=== PATIENT | male | born 1955 | race Caucasian/White ===

== ENCOUNTER → 2020-04-22 17:40 | Outpatient (CLI) | payer MEDICARE, OTHER, SELFPAY ==
[2020-04-22 17:52] LABS: Hematocrit 48.2 % (41-53); Hemoglobin 16.8 g/dL (13.5-17.5); Mean Corpuscular HGB Conc 34.8 % (30-36); Mean Corpuscular Hemoglobin 32.3 PG (26-34); Mean Corpuscular Volume 92.8 fL (80-100); Platelet Count 156 X10^3/uL (150-400); Red Blood Cell Count 5.19 X10^6/uL (4.5-5.9); Red Cell Distribution Width 12.6 % (11.6-14.8); White Blood Cell Count 9.4 X10^3/uL (4.5-11.0)
[2020-04-22 18:04] LABS: Alanine Aminotransferase 42 IU/L (<50); Albumin 4.7 g/dL (3.5-5.0); Albumin Globulin Ratio 1.5 (1.0-2.8); Alkaline Phosphatase 58 U/L (38-126); Aspartate Aminotransferase 36 IU/L (17-59); Blood Urea Nitrogen 41 mg/dL (9-20); Carbon Dioxide 25 mmol/L (22-32); Chloride 108 mmol/L (98-107); Cholesterol 280 mg/dL (140-199); Estimated Glomerular Filt Rate 42.4 mL/min (>60); Globulin 3.1 g/dL (1.7-4.1); Glucose 97 mg/dL (80-110); HDL Cholesterol 41 mg/dL (40-60); HEMOLYSIS 16 (0-50); LDL Cholesterol Calculated 171 mg/dL (<100); Potassium 4.9 mmol/L (3.4-5.1); Sodium 138 mmol/L (137-145); Total Protein 7.8 g/dL (6.3-8.2); Triglycerides 342 mg/dL (35-150)
[2020-04-22 18:55] LABS: TSH w/ Reflex to FT4 1.28 uIU/mL (0.47-4.68)
== END ==
PROVIDERS: PCP Registered Nurse Diabetes Educator; Referring Provider Registered Nurse Diabetes Educator; Visit Provider Registered Nurse Diabetes Educator
DX: E78.5 Hyperlipidemia, unspecified (principal); I10 Essential (primary) hypertension
CPT/HCPCS: 36415; 80053; 80061; 84443; 85027

== ENCOUNTER → 2020-05-03 15:13 | Outpatient (CLI) | payer MEDICARE, OTHER, SELFPAY ==
[2020-05-03 15:20] LABS: Bacteria Urine None Seen; RBC Urine None Seen (0-5/HPF)
[2020-05-03 16:12] LABS: BUN Creatinine Ratio 25.5 (6-22); Blood Urea Nitrogen 47 mg/dL (9-20); Calcium 9.4 mg/dL (8.4-10.2); Carbon Dioxide 27 mmol/L (22-32); Chloride 102 mmol/L (98-107); Estimated Glomerular Filt Rate 37.1 mL/min (>60); Glucose 88 mg/dL (80-110); HEMOLYSIS < 15 (0-50); Sodium 133 mmol/L (137-145)
[2020-05-03 16:14] LABS: Potassium 5.4 mmol/L (3.4-5.1)
[2020-05-03 16:18] LABS: Appearance Urine UA CLEAR; Bilirubin Urine UA NEGATIVE (NEGATIVE); Color Urine UA YELLOW; Glucose Urine UA NEGATIVE (Negative); Ketones Urine UA NEGATIVE (NEGATIVE); Leukocyte Esterase Urine UA NEGATIVE (NEGATIVE); Nitrite Urine UA NEGATIVE (Negative); Occult Blood Urine UA NEGATIVE (Negative); Protein Urine UA NEGATIVE (Negative); Specific Gravity Urine UA <=1.005 (1.000-1.035); Urobilinogen Urine UA 0.2 E.U./dL (0.2); pH Urine UA 5.5 (4.5-8.0)
[2020-05-03 16:30] LABS: Culture Indicated Urine Cult Not Indicated; Squamous Epithelial Cell Urine 0-1 /HPF (0-5/HPF); WBC Urine 0-1/HPF (0-5/HPF)
[2020-05-03 17:51] LABS: Creatinine Urine Random 28.4 mg/dL
[2020-05-03 17:56] LABS: Microalbumin Urine Random < 0.6 mg/dL (0-1.6)
== END ==
PROVIDERS: PCP Registered Nurse Diabetes Educator; Referring Provider Registered Nurse Diabetes Educator; Visit Provider Registered Nurse Diabetes Educator
DX: I10 Essential (primary) hypertension (principal); R79.89 Other specified abnormal findings of blood chemistry
CPT/HCPCS: 36415; 80048; 81001; 82043; 82570

== ENCOUNTER → 2020-05-13 13:39 | Outpatient (CLI) | payer MEDICARE, OTHER, SELFPAY ==
--- NOTE | 2020-05-13 13:40 | DI.US.S_ITS ---
PROCEDURE: US RENAL COMPLETE INDICATIONS: CHRONIC KIDNEY DISEASE III TECHNIQUE: Real-time scanning was performed of the kidneys and bladder, with image documentation. COMPARISON: None. FINDINGS: Kidneys: Kidneys are normal in size. Right kidney measures 10.4 cm long; left kidney measures 9.6 cm long. Right renal cortical thickness is 1.7 cm; left renal cortical thickness is 1.6 cm. Renal cortical echotexture is normal. No hydronephrosis or nephrolithiasis. No suspicious solid mass lesions. There are scattered cysts, with the largest on the right measuring up to 1.5 cm superiorly. A 3 x 4 mm renal collecting system focus of calcification is seen with shadowing but this could be a nonobstructive calculus or a vascular calcification in that area. On the left there also are scattered cysts the largest of which measures up to 3.6 cm superiorly.. Bladder: Pre-void bladder volume is 316 mL. Post-void residual is 13 mL. Pre-void images demonstrate no intraluminal masses or stones. On pre-void images, bilateral ureteral jets are noted with color Doppler interrogation. (Of note, ureteral jets may not be detectable in up to 25% of cases due to insufficient differences in specific gravity between ureteral and bladder urine). Miscellaneous: No free pelvic fluid. IMPRESSION: No hydronephrosis is found. Scattered bilateral simple renal cortical cysts are incidentally noted, the largest measuring up to 3.6 cm at the superior left renal cortex. There is a suspected small nonobstructive 3 x 4 mm calculus within the middle 3rd of the right renal collecting system. Normal bladder function. Dictated by: Marlon Prajapati M.D. on 05/13/2020 at 15:58 Approved by: Marlon Prajapati M.D. on 05/13/2020 at 16:01
== END ==
PROVIDERS: PCP Registered Nurse Diabetes Educator; Referring Provider Registered Nurse Diabetes Educator; Visit Provider Registered Nurse Diabetes Educator
DX: N18.30 Chronic kidney disease, stage 3 unspecified (principal); N28.1 Cyst of kidney, acquired
CPT/HCPCS: 76770

== ENCOUNTER → 2020-05-27 08:02 | Outpatient (CLI) | payer MEDICARE, OTHER, SELFPAY ==
[2020-05-27 09:59] LABS: BUN Creatinine Ratio 22.8 (6-22); Blood Urea Nitrogen 33 mg/dL (9-20); Calcium 9.2 mg/dL (8.4-10.2); Carbon Dioxide 32 mmol/L (22-32); Chloride 104 mmol/L (98-107); Estimated Glomerular Filt Rate 48.8 mL/min (>60); Glucose 99 mg/dL (80-110); HEMOLYSIS < 15 (0-50); Potassium 4.4 mmol/L (3.4-5.1); Sodium 138 mmol/L (137-145)
== END ==
PROVIDERS: PCP Registered Nurse Diabetes Educator; Referring Provider Registered Nurse Diabetes Educator; Visit Provider Registered Nurse Diabetes Educator
DX: N18.30 Chronic kidney disease, stage 3 unspecified (principal)
CPT/HCPCS: 36415; 80048

== ENCOUNTER → 2021-06-28 09:31 | Outpatient (CLI) | payer MEDICARE, OTHER, SELFPAY ==
[2021-06-28 11:02] LABS: Cholesterol 262 mg/dL (140-199); HDL Cholesterol 39 mg/dL (40-60); LDL Cholesterol Calculated 182 mg/dL (<100); Triglycerides 205 mg/dL (35-150)
[2021-07-02 09:55] LABS: Alanine Aminotransferase 26 IU/L (<50); Albumin 4.2 g/dL (3.5-5.0); Albumin Globulin Ratio 1.7 (1.0-2.8); Alkaline Phosphatase 52 U/L (38-126); Aspartate Aminotransferase 33 IU/L (17-59); BUN Creatinine Ratio 21.8 (6-22); Blood Urea Nitrogen 38 mg/dL (9-20); Calcium 9.8 mg/dL (8.4-10.2); Carbon Dioxide 29 mmol/L (22-32); Chloride 105 mmol/L (98-107); Estimated Glomerular Filt Rate 39.3 mL/min (>60); Globulin 2.5 g/dL (1.7-4.1); Glucose 104 mg/dL (80-110); HEMOLYSIS < 15 (0-50); Potassium 4.6 mmol/L (3.4-5.1); Sodium 138 mmol/L (137-145); Total Protein 6.7 g/dL (6.3-8.2)
== END ==
PROVIDERS: PCP Registered Nurse Diabetes Educator; Referring Provider Registered Nurse Diabetes Educator; Visit Provider Registered Nurse Diabetes Educator
DX: E78.5 Hyperlipidemia, unspecified (principal)
CPT/HCPCS: 36415; 80053; 80061

== ENCOUNTER → 2021-10-01 07:41 | Outpatient (CLI) | payer MEDICARE, OTHER, SELFPAY ==
--- NOTE | 2021-10-01 07:43 | DI.US.S_ITS ---
PROCEDURE: US ABD AORTA ANEURYSM SCREEN INDICATIONS: HX SMOKING TECHNIQUE: Real time scanning was performed of the aorta and iliac arteries, with image documentation. COMPARISON: [facility], CT, ABDOMEN/PELVIS WITH CONTRAST, 12/08/2013, 8:25. FINDINGS: Aorta: The proximal aorta is not seen, secondary to overlying bowel gas. Mid-aorta measures 1.7 cm. Distal aortic diameter is 1.6 cm. Iliac arteries: Right common iliac artery measures 0.8 cm. Left common iliac artery measures 1 cm. IMPRESSION: Negative for aneurysm. Dictated by: Robel Parra M.D. on 10/01/2021 at 10:23 Approved by: Robel Parra M.D. on 10/01/2021 at 10:25
--- NOTE | 2021-10-01 07:43 | DI.ECHO.S_ITS ---
[facility] +---------+ [facility] +---------+ : : [address] : : : : [phone] : : : : Phone: [phone]---------+ Echocardiogram Report + + :Name: OMID FITZGERALD Study Date: 10/01/2021 Height: 65 in : [id number] ReadingLocation: Weight: 160 lb : : Gender: Male BSA: 1.8 m2 : :: 1955 Age: 66 yrs BP: 136/76 mmHg: :Reason For Study: Aortic valve stenosis : : Performed By: Leonarda Galvan : :Referring: AKI VERA : + + Interpretation Summary 1) Normal left ventricular thickness, size, wall motion, and systolic function (EF 60-65%). 2) Normal right ventricular size and function. 3) There is mild to moderate aortic stenosis (valve area 1.5cm2, mean gradient 18mm Hg, severity ratio 0.35). 4) There is mild to moderate aortic regurgitation. 5) The aortic root is mildly dilated at 4.1cm. 6) No prior Echo available for comparison. Procedure: A two-dimensional transthoracic echocardiogram with color flow and Doppler was performed. The study quality was technically adequate. There is no prior echocardiogram noted for this patient. The patient was in normal sinus rhythm during the exam. Left Ventricle: The left ventricle appears normal in size, wall thickness, and systolic function without any focal wall motion abnormalities. The estimated left ventricular end diastolic volume is 93 ml. There is no ventricular septal defect visualized. The ejection fraction is estimated to be 60-65%. Diastolic parameters suggest a relaxation abnormality of the left ventricle, consistent with probable normal filling pressures. Right Ventricle: The right ventricle is normal in size and function. Atria: Both atria are normal in size. There is no Doppler evidence for an interatrial shunt. Mitral Valve: The mitral valve is normal in structure and function. There is no mitral regurgitation noted. Aortic Valve: There is moderate aortic valve sclerosis. The aortic valve is trileaflet. The peak aortic velocity is 2.9 m/sec. The aortic valve mean gradient is 17.6 mmHg. The calculated aortic valve area is 1.5 cm2. There is mild to moderate aortic stenosis. There is mild to moderate aortic regurgitation. Tricuspid Valve: The tricuspid valve leaflets are thin and pliable. There is trace tricuspid regurgitation. The right ventricular systolic pressure is estimated to be at least 25 mmHg based on an estimated right atrial pressure of 3 mm Hg. Pulmonic Valve: The pulmonic valve is not well seen, but is grossly normal. There is no pulmonic valvular regurgitation. Great Vessels: The aortic root is mildly dilated. The ascending aorta is at the upper limits of normal in size. The aortic arch is normal in size. The IVC is of normal diameter and collapses greater than 50% with a sniff. This suggests a low right atrial pressure of 3 mm Hg. Pericardium/ Pleura There is no pericardial effusion. MMode/2D Measurements & Calculations LVIDd: 5.2 cm LVOT diam: 2.3 cm LVIDs: 3.4 cm Ao root diam: 4.1 cm FS: 35.7 % asc Aorta Diam: 3.7 cm EPSS: 0.55 cm Ao Arch Diam (Prox Trans): 3.1 cm IVSd: 0.84 cm LVPWd: 0.74 cm LV oseguera. diameter/BSA (cm/m^2): 2.9 LV sys. diameter/BSA (cm/m^2): 1.9 LA A2 area: 18.5 cm2 RA long axis: 5.1 cm LA A4 area: 15.4 cm2 RA area: 12.6 cm2 LA length (vol): 4.6 cm RA vol: 26.9 ml LA vol: 53.1 ml RA : 15.0 ml/m2 LA vol index: 29.5 ml/m2 IVC diam: 1.2 cm RVD1 (basal): 2.8 cm TAPSE: 2.0 cm Doppler Measurements & Calculations Ao V2 max: 287.3 cm/sec LVOT Max Camacho: 99.9 cm/sec Ao V2 mean: 199.4 cm/sec LV V1 max P.0 mmHg Ao max P.0 mmHg LV V1 VTI: 21.3 cm Ao mean P.6 mmHg MIRYAM(I,D): 1.5 cm2 Ao V2 VTI: 60.9 cm MIRYAM(V,D): 1.5 cm2 sev ratio: 0.35 MIRYAM indexed to BSA (cm^2/m^2): 0.83 AI P1/2t: 664.3 msec AI dec slope: 208.3 cm/sec2 MV E max camacho: 55.9 cm/sec TR max camacho: 236.1 cm/sec MV A max camacho: 68.8 cm/sec TR max P.3 mmHg MV E/A: 0.81 PA V2 max: 73.2 cm/sec Med Peak E' Camacho: 4.6 cm/sec PA V2 mean: 50.3 cm/sec E/E' med: 12.1 PA mean P.1 mmHg Lat Peak E' Camacho: 7.4 cm/sec PA pr(Accel): 25.1 mmHg E/E' lat: 7.6 E/e' average: 9.8 MV dec time: 0.25 sec SV(LVOT): 90.7 ml Reading Physician:01:25 PM
== END ==
PROVIDERS: PCP Registered Nurse Diabetes Educator; Referring Provider Registered Nurse Diabetes Educator; Visit Provider Registered Nurse Diabetes Educator
DX: I35.2 Nonrheumatic aortic (valve) stenosis with insufficiency (principal); I77.810 Thoracic aortic ectasia; Z13.6 Encounter for screening for cardiovascular disorders; F17.200 Nicotine dependence, unspecified, uncomplicated
CPT/HCPCS: 76706; 93306

== ENCOUNTER → 2022-08-08 07:39 | Outpatient (CLI) | payer MEDICARE, OTHER, SELFPAY ==
[2022-08-08 08:54] LABS: Hematocrit 47.5 % (41-53); Hemoglobin 16.4 g/dL (13.5-17.5); Mean Corpuscular HGB Conc 34.4 % (30-36); Mean Corpuscular Hemoglobin 32.2 PG (26-34); Mean Corpuscular Volume 93.6 fL (80-100); Platelet Count 138 X10^3/uL (150-400); Red Blood Cell Count 5.08 X10^6/uL (4.5-5.9); Red Cell Distribution Width 13.2 % (11.6-14.8); White Blood Cell Count 7.3 X10^3/uL (4.5-11.0)
[2022-08-08 09:17] LABS: Alanine Aminotransferase 55 IU/L (<50); Albumin 4.2 g/dL (3.5-5.0); Albumin Globulin Ratio 1.8 (1.0-2.8); Alkaline Phosphatase 70 U/L (38-126); Aspartate Aminotransferase 39 IU/L (17-59); BUN Creatinine Ratio 20.5 (6-22); Blood Urea Nitrogen 33 mg/dL (9-20); Calcium 8.8 mg/dL (8.4-10.2); Carbon Dioxide 30 mmol/L (22-32); Chloride 103 mmol/L (98-107); Cholesterol 185 mg/dL (140-199); Estimated Glomerular Filt Rate 46 mL/min (>60); Globulin 2.4 g/dL (1.7-4.1); Glucose 107 mg/dL (80-110); HDL Cholesterol 50 mg/dL (40-60); HEMOLYSIS < 15 (0-50); LDL Cholesterol Calculated 110 mg/dL (<100); Potassium 4.4 mmol/L (3.4-5.1); Sodium 136 mmol/L (137-145); Total Protein 6.6 g/dL (6.3-8.2); Triglycerides 124 mg/dL (35-150)
[2022-08-08 09:46] LABS: TSH w/ Reflex to FT4 1.38 uIU/mL (0.47-4.68)
== END ==
PROVIDERS: PCP Registered Nurse Diabetes Educator; Referring Provider Registered Nurse Diabetes Educator; Visit Provider Registered Nurse Diabetes Educator
DX: E78.5 Hyperlipidemia, unspecified (principal); I10 Essential (primary) hypertension; N18.32 Chronic kidney disease, stage 3b
CPT/HCPCS: 36415; 80053; 80061; 84443; 85027

== ENCOUNTER → 2022-10-21 15:07 | Outpatient (CLI) | payer MEDICARE, OTHER, SELFPAY ==
--- NOTE | 2022-10-21 15:10 | DI.CT.S_ITS ---
PROCEDURE: CT CHEST WO CON INDICATIONS: Current smoker TECHNIQUE: Noncontrast 2.0-2.5 mm thick sections acquired from the pulmonary apices to the posterior costophrenic angles. 7 mm thick axial MIP, and 5 mm coronal and sagittal reformats were then acquired. A low radiation dose technique was utilized. COMPARISON: None. FINDINGS: Image quality: Diagnostic, given the low radiation dose technique. Lungs and pleura: Moderate emphysematous change. No mass or significant pulmonary nodules. No acute airspace opacity. The airways are clear. No pleural effusion or pneumothorax. Mediastinum: Heart size is normal. Mild coronary artery calcifications. No pericardial effusion. No mediastinal adenopathy by size criteria. Thoracic aorta and central pulmonary arteries are normal in size. Esophagus is normal in caliber. No hiatal hernia. Bones and chest wall: No suspicious bony lesions. T4 compression fracture, moderate. No axillary or supraclavicular adenopathy by size criteria. Thyroid gland right thyroid nodule measuring 1.6 cm with calcifications. Abdomen: Visualized upper abdomen solid organs and bowel loops appear normal in the absence of contrast. Low-density cyst at the superior pole of the left kidney. Small benign left adrenal adenoma. IMPRESSION: 1. No significant pulmonary nodules. LUNG-RADS 1; recommend follow-up lung cancer screening chest CT in 12 months. 2. Moderate emphysematous change. 3. Right thyroid nodule measuring 1.6 cm. 4. T4 compression fracture. Dictated by: You Jasmine M.D. on 10/21/2022 at 17:32 Approved by: You Jasmine M.D. on 10/21/2022 at 17:36
== END ==
PROVIDERS: PCP Registered Nurse Diabetes Educator; Referring Provider Registered Nurse Diabetes Educator; Visit Provider Registered Nurse Diabetes Educator
DX: E04.1 Nontoxic single thyroid nodule (principal); M48.54XA Collapsed vertebra, not elsewhere classified, thoracic region, initial encounter for fracture; F17.200 Nicotine dependence, unspecified, uncomplicated
CPT/HCPCS: 71250

== ENCOUNTER → 2022-11-11 15:06 | Outpatient (CLI) | payer MEDICARE, OTHER, SELFPAY ==
--- NOTE | 2022-11-11 15:07 | DI.US.S_ITS ---
PROCEDURE: US THYROID INDICATIONS: NODULE ON CT TECHNIQUE: Real-time scanning was performed of the thyroid gland, with image documentation. COMPARISON: [facility], CT, CT CHEST WO [facility], 10/21/2022, 15:26. FINDINGS: Right: 6.1 x 2.8 x 2.3 cm Left: 5.3 x 2.5 x 1.8 cm Isthmus: 3.5 mm Left thyroid nodule measures 1.7 x 0.9 x 0.9 cm. Mixed cystic/solid. Hypoechoic echotexture. Margins are ill-defined. TR 3. Follow-up recommended. Right superior nodule measures 1.6 x 1.4 x 1.7 cm. It is solid and hypoechoic. TR 4. Sampling is recommended. Right inferior nodule measures 1.4 x 1.5 x 1.2 cm. Rim calcifications. It is solid and hypoechoic. TR 4. Sampling is recommended. Isthmus nodule measures 1.6 x 0.8 x 1.3 cm. It is cystic solid with smooth borders. Hypoechoic echotexture. TR 3. Follow-up is recommended. IMPRESSION: Thyroid nodules as above. ACR TI-RADS definitions and recommendations: TI-RADS 1 (benign): 0 points. FNA not needed. TI-RADS 2 (not suspicious): 2 points. FNA not needed. TI-RADS 3 (mildly suspicious): 3 points. * FNA if 2.5 cm or larger, follow up if 1.5 cm or larger (at 1, 3, and 5 years). TI-RADS 4 (moderately suspicious): 4-6 points. * FNA if 1.5 cm or larger, follow up if 1 cm or larger (at 1, 2, 3, and 5 years). TI-RADS 5 (highly suspicious): 7 points or more. * FNA if 1 cm or larger, follow up if 0.5 cm or larger (every year for 5 years). Dictated by: Orestes Arzate M.D. on 11/11/2022 at 16:48 Approved by: Orestes Arzate M.D. on 11/11/2022 at 16:53
== END ==
PROVIDERS: PCP Registered Nurse Diabetes Educator; Referring Provider Registered Nurse Diabetes Educator; Visit Provider Registered Nurse Diabetes Educator
DX: E04.2 Nontoxic multinodular goiter (principal)
CPT/HCPCS: 76536

== ENCOUNTER → 2022-11-23 10:17 | Outpatient (CLI) | payer MEDICARE, OTHER, SELFPAY ==
[2022-11-23 11:35] LABS: Add Manual Diff / Slide Review NO; Basophils Absolute Auto 0 /uL (0-100); Basophils Percent Auto 0.6 % (0-2); Eosinophils Absolute Auto 100 /uL (0-450); Eosinophils Percent Auto 1.1 % (2-4); Hemoglobin 14.6 g/dL (13.5-17.5); Lymphocytes Absolute Auto 1700 /uL (1100-4500); Lymphocytes Percent Auto 25.6 % (25-40); Mean Corpuscular HGB Conc 34.9 % (30-36); Mean Corpuscular Hemoglobin 32.9 PG (26-34); Mean Corpuscular Volume 94.5 fL (80-100); Monocytes Absolute Auto 600 /uL (0-900); Monocytes Percent Auto 8.9 % (3-14); Neutrophils Absolute Auto 4400 /uL (1500-7000); Neutrophils Percent Auto 63.8 % (50-75); Platelet Count 132 X10^3/uL (150-400); Red Blood Cell Count 4.45 X10^6/uL (4.5-5.9); Red Cell Distribution Width 13.6 % (11.6-14.8); White Blood Cell Count 6.8 X10^3/uL (4.5-11.0)
[2022-11-23 12:19] LABS: Alanine Aminotransferase 68 IU/L (<50); Albumin 4.1 g/dL (3.5-5.0); Alkaline Phosphatase 63 U/L (38-126); Aspartate Aminotransferase 46 IU/L (17-59); Bilirubin Unconjugated 0.8 mg/dL (0.0-1.1); Cholesterol 156 mg/dL (140-199); Globulin 2.1 g/dL (1.7-4.1); HDL Cholesterol 62 mg/dL (40-60); HEMOLYSIS < 15 (0-50); LDL Cholesterol Calculated 80 mg/dL (<100); Total Protein 6.2 g/dL (6.3-8.2); Triglycerides 70 mg/dL (35-150)
[2022-11-23 12:29] LABS: Creatinine Urine Random 90.4 mg/dL
[2022-11-23 12:36] LABS: Microalbumin Urine Random 5.7 mg/dL (0-1.6)
== END ==
PROVIDERS: PCP Registered Nurse Diabetes Educator; Referring Provider Registered Nurse Diabetes Educator; Visit Provider Registered Nurse Diabetes Educator
DX: D69.6 Thrombocytopenia, unspecified (principal); E78.5 Hyperlipidemia, unspecified; R74.8 Abnormal levels of other serum enzymes; N18.30 Chronic kidney disease, stage 3 unspecified
CPT/HCPCS: 36415; 80061; 80076; 82043; 82570; 85025

== ENCOUNTER → 2022-12-02 12:23 | Outpatient (CLI) | payer MEDICARE, OTHER, SELFPAY ==
--- NOTE | 2022-12-02 | DI.ECHO.S_ITS ---
[facility] +---------+ [facility] +---------+ : : [address] : : : : [phone] : : : : Phone: [phone]+ Echocardiogram Report + + :Name: OMID FITZGERALD Study Date: 12/02/2022 Height: 66 in : :[facility] ReadingLocation: Weight: 147 lb : : Gender: Male BSA: 1.8 m2 : :: 1955 Age: 67 yrs BP: 136/67 mmHg: :Reason For Study: AORTIC STENOSIS : :Ordering Physician: MADHAVI, : :ANNA MARIE Performed By: Nayely Castelan : :Referring: ANNA MARIE NAVA : + + Interpretation Summary 1) Normal left ventricular thickness, size, wall motion, and systolic function (EF 55-60%). 2) Normal right ventricular size and function. 3) There is mild to moderate aortic stenosis (valve area 1.4cm2, mean gradient 19mm Hg, severity ratio 0.35). 4) There is mild to moderate aortic regurgitation. 5) Compared to the Echo done 03/2022, no significant change. Procedure: A two-dimensional transthoracic echocardiogram with color flow and Doppler was performed. The study quality was technically adequate. Comparison is made with the echocardiogram of 10/01/2021. The patient was in sinus rhythm with heart rates between 59-62 bpm during the exam. Left Ventricle: The left ventricle is normal in size and wall thickness. The ejection fraction is estimated to be 55-60%. Left ventricular systolic function appears normal without focal wall motion abnormalities. Diastolic parameters suggest a relaxation abnormality of the left ventricle, consistent with probable normal filling pressures. Right Ventricle: The right ventricle is normal in size and function. Atria: The left atrial size is normal. Right atrial size is normal. There is no Doppler evidence for an interatrial shunt. Mitral Valve: The mitral valve is normal in structure and function. There is mild mitral regurgitation. Aortic Valve: The aortic valve is moderately calcified. There is moderate aortic valve sclerosis. The aortic valve is trileaflet. There is mild to moderate aortic stenosis. The peak aortic velocity is 2.9 m/sec. The aortic valve mean gradient is 19 mmHg. The calculated aortic valve area is 1.3 cm2. There is mild to moderate aortic regurgitation. Tricuspid Valve: The tricuspid valve is normal in structure and function. There is mild tricuspid regurgitation. The right ventricular systolic pressure is estimated to be at least 23 mmHg based on an estimated right atrial pressure of 3 mm Hg. Pulmonic Valve: The pulmonic valve is not well seen, but is grossly normal. There is a trace or physiologic amount of pulmonic regurgitation. Great Vessels: The aortic root is normal size. The ascending aorta is at the upper limits of normal in size. The IVC is of normal diameter and collapses greater than 50% with a sniff. This suggests a low right atrial pressure of 3 mm Hg. Pericardium/ Pleura There is no pericardial effusion. There is no pleural effusion. MMode/2D Measurements & Calculations LVIDd: 4.7 cm LVOT diam: 2.3 cm LVIDs: 3.1 cm Ao root diam: 3.6 cm FS: 33.3 % asc Aorta Diam: 3.7 cm EPSS: 1.0 cm Ao Arch Diam (Prox Trans): 2.2 cm IVSd: 1.0 cm LVPWd: 0.93 cm LV oseguera. diameter/BSA (cm/m^2): 2.7 LV sys. diameter/BSA (cm/m^2): 1.8 LA A2 area: 17.2 cm2 RA long axis: 5.0 cm LA A4 area: 14.2 cm2 RA area: 15.3 cm2 LA length (vol): 4.8 cm RA vol: 39.6 ml LA vol: 43.7 ml RA : 22.6 ml/m2 LA vol index: 24.9 ml/m2 IVC diam: 1.8 cm RVD1 (basal): 3.3 cm RVD2 (mid): 2.6 cm TAPSE: 2.6 cm Doppler Measurements & Calculations Ao V2 max: 287.5 cm/sec LVOT Max Camacho: 93.2 cm/sec Ao V2 mean: 205.6 cm/sec LV V1 max P.5 mmHg Ao max P.1 mmHg LV V1 VTI: 23.1 cm Ao mean P.4 mmHg MIRYAM(I,D): 1.4 cm2 Ao V2 VTI: 65.1 cm MIRYAM(V,D): 1.3 cm2 sev ratio: 0.35 MIRYAM indexed to BSA (cm^2/m^2): 0.82 AI P1/2t: 536.5 msec AI dec slope: 226.8 cm/sec2 MV E max camacho: 71.4 cm/sec TR max camacho: 221.0 cm/sec MV A max camacho: 66.1 cm/sec TR max P.5 mmHg MV E/A: 1.1 PA V2 max: 88.2 cm/sec Med Peak E' Camacho: 7.9 cm/sec PA V2 mean: 63.9 cm/sec E/E' med: 9.0 PA mean P.8 mmHg Lat Peak E' Camacho: 11.7 cm/sec PA pr(Accel): 24.2 mmHg E/E' lat: 6.1 E/e' average: 7.6 MV dec time: 0.26 sec SV(LVOT): 93.5 ml Reading Physician:02:08 PM
== END ==
PROVIDERS: PCP Registered Nurse Diabetes Educator; Referring Provider Internal Medicine Cardiovascular Disease; Visit Provider Internal Medicine Cardiovascular Disease
DX: I08.3 Combined rheumatic disorders of mitral, aortic and tricuspid valves (principal); I77.89 Other specified disorders of arteries and arterioles
CPT/HCPCS: 93306

== ENCOUNTER → 2022-12-09 07:41 | Outpatient (CLI) | payer MEDICARE, OTHER, SELFPAY ==
--- NOTE | 2022-12-09 | PATH_ITS ---
Note [facility] Accession Number: [id number] TESTS RESULT FLAG UNITS REF RANGE LAB Clinician Provided Cytology Information No. of containers..01 Other (Miscellaneous) No. of containers..02 Previously Prepared Cytology Slide Source: RIGHT INFERIOR THYROID NODULE #3 (B) DIAGNOSIS: RIGHT INFERIOR THYROID NODULE #3 (B) INCONCLUSIVE. BETHESDA CATEGORY III. ATYPIA OF UNDETERMINED SIGNIFICANCE. MOLECULAR STUDIES REQUESTED; RESULTS WILL BE REPORTED SEPARATELY. Pathologist ICD10: R89.6 Signed out by: Annie Hsu MD, Pathologist NPI- [id number] Performed by: Christine Lee, Analytical Consultant ([facility]) Gross description: 30 CC, RED, HAZY RECIEVED: 1 NEEDLE IN CYTOLYT WITH 6 ALCOHOL FIXED AND 6 QUICK STAINED SLIDES ALSO 1 RNA VIAL WAS RECEIVED.VO /VDU 12/10/2022 06 Local FLAG LEGEND: L-Low Normal,H-High Normal,LL-Alert Low,HH-Alert High <-Panic Low,>-Panic High,A-Abnormal,AA-Critical Abnormal Performed at: 01 =[facility] [address], [place] [address] Markus Patel MD, Specimen Comment: [id number] Performed at: 01 [facility] [address], [place], [place] [id number] MD Markus Patel MD Phone: [phone]
--- NOTE | 2022-12-09 | PATH_ITS ---
Note [facility] Accession Number: [id number] TESTS RESULT FLAG UNITS REF RANGE LAB Clinician Provided Cytology Information No. of containers..01 Other (Miscellaneous) No. of containers..02 Previously Prepared Cytology Slide Source: RIGHT SUPERIOR THYROID NODULE #2 (A) DIAGNOSIS: RIGHT SUPERIOR THYROID NODULE #2 (A) INCONCLUSIVE. BETHESDA CATEGORY III. ATYPIA OF UNDETERMINED SIGNIFICANCE. MOLECULAR STUDIES PENDING; RESULTS WILL BE REPORTED SEPARATELY. Pathologist ICD10: R89.6 Signed out by: Annie Hsu MD, Pathologist NPI- [id number] Performed by: Redd Osei, Real Estate Coordinator ([facility]) Gross description: 30 CC, RED, HAZY RECIEVED: IN CYTOLYT WITH 6 ALCOHOL FIXED AND 6 QUICK STAINED SLIDES ALSO 1 RNA VIAL WAS RECEIVED.VO /VDU 12/10/2022 [facility] Local FLAG LEGEND: L-Low Normal,H-High Normal,LL-Alert Low,HH-Alert High <-Panic Low,>-Panic High,A-Abnormal,AA-Critical Abnormal Performed at: 01 =[facility] [address], [place] [address] Markus Patel MD, Performed at: 01 [facility] [address], [place], [place] [id number] MD Markus Patel MD Phone: [phone]
--- NOTE | 2022-12-09 07:42 | DI.US.S_ITS ---
PROCEDURE: US FINE NEEDLE ASPIRATION INDICATIONS: RIGHT SUPERIOR #2 AND RIGHT INFERIOR #3 NODULES FNA TECHNIQUE: The indications, alternatives, benefits, risks, and complications of the procedure were explained to the patient. Written informed consent was obtained and placed in the chart. The area of interest was examined sonographically and a site was chosen for ultrasound guided percutaneous sampling. The skin was prepared and draped in the usual fashion, and anesthetized with 1% lidocaine infiltrated from the skin down to the lesion. Multiple passes were then performed, with contents emptied into an appropriate pathology specimen container. A bandage was applied to the area of access at completion of the study. COMPARISON: [facility], , THYROID, 11/11/2022, 15:36. FINDINGS: Location(s) of lesion(s) sampled: 2 nodules were sampled, right inferior and right superior thyroid lobes. Edmond: 25 and 22 gauge hypodermic needles. Number of passes: For each nodule, 5 passes with a 25 gauge needle and a single pass with a 22 gauge needle with suction. Medications: 1% lidocaine for local anaesthesia. Complications: None. IMPRESSION: Successful ultrasound-guided thyroid nodule fine needle aspiration, with cytology results pending. Dictated by: Cory Ram M.D. on 12/09/2022 at 9:31 Approved by: Cory Ram M.D. on 12/09/2022 at 9:34
--- NOTE | 2022-12-09 07:42 | DI.US.S_ITS ---
PROCEDURE: US ABDOMEN LIMITED INDICATIONS: liver enzyme elevation TECHNIQUE: Real-time focused scanning was performed of the abdomen, with image documentation. COMPARISON: [facility], CT, ABDOMEN/PELVIS WITH CONTRAST, 12/08/2013, 8:25. FINDINGS: The liver is normal in size and demonstrates no focal lesions. No findings of gallstones or sludge are seen. The gallbladder wall is not thickened, measuring 3 mm or less. No specific pericholecystic fluid is seen. The sonographic Servin sign is negative. There is no biliary dilatation, the common bile duct measures 6 mm. No significant pancreatic abnormality is seen on these images. Two simple appearing right renal cysts are seen, with the largest seen superiorly measuring up to 1.6 cm. IMPRESSION: Normal liver by ultrasound. Dictated by: Robel Parra M.D. on 12/09/2022 at 17:34 Approved by: Robel Parra M.D. on 12/09/2022 at 17:35
== END ==
PROVIDERS: PCP Registered Nurse Diabetes Educator; Referring Provider Registered Nurse Diabetes Educator; Visit Provider Registered Nurse Diabetes Educator
DX: E04.2 Nontoxic multinodular goiter (principal); R74.8 Abnormal levels of other serum enzymes; D69.6 Thrombocytopenia, unspecified
CPT/HCPCS: 10005; 10006; 76705

== ENCOUNTER → 2023-01-09 07:31 | Outpatient (CLI) | payer MEDICARE, OTHER, SELFPAY ==
[2023-01-09 10:35] LABS: HEMOLYSIS < 15 (0-50); Iron 71 ug/dL (49-181)
[2023-01-09 10:51] LABS: Percent Iron Saturation 21 % (20-50); Total Iron Binding Capacity 344 ug/dL (261-462); Transferrin 249 mg/dL (206-381)
[2023-01-09 11:09] LABS: Ferritin 108 ng/mL (18-464)
[2023-01-11 09:16] LABS: Hep C Virus Ab w/Reflex Quant NEGATIVE s/c (NEGATIVE); Hepatitis B Surface Antigen NEGATIVE s/c (NEGATIVE)
== END ==
PROVIDERS: PCP Registered Nurse Diabetes Educator; Referring Provider Registered Nurse Diabetes Educator; Visit Provider Registered Nurse Diabetes Educator
DX: D69.6 Thrombocytopenia, unspecified (principal); R74.8 Abnormal levels of other serum enzymes
CPT/HCPCS: 36415; 82728; 83540; 83550; 86803; 87340

== ENCOUNTER → 2023-07-23 06:32 | Outpatient (CLI) | payer MEDICARE, OTHER, SELFPAY ==
[2023-07-23 08:16] LABS: Hemoglobin 14.9 g/dL (13.5-17.5); Mean Corpuscular HGB Conc 34.7 % (30-36); Mean Corpuscular Hemoglobin 32.2 PG (26-34); Mean Corpuscular Volume 92.8 fL (80-100); Platelet Count 159 X10^3/uL (150-400); Red Blood Cell Count 4.64 X10^6/uL (4.5-5.9); Red Cell Distribution Width 13.3 % (11.6-14.8); White Blood Cell Count 6.2 X10^3/uL (4.5-11.0)
[2023-07-23 09:35] LABS: Alanine Aminotransferase 85 IU/L (<50); Albumin 4.1 g/dL (3.5-5.0); Albumin Globulin Ratio 1.8 (1.0-2.8); Alkaline Phosphatase 68 U/L (38-126); Aspartate Aminotransferase 63 IU/L (17-59); Bilirubin Total 1.2 mg/dL (0.2-1.3); Bilirubin Unconjugated 0.9 mg/dL (0.0-1.1); Cholesterol 163 mg/dL (140-199); Globulin 2.3 g/dL (1.7-4.1); HDL Cholesterol 53 mg/dL (40-60); HEMOLYSIS < 15 (0-50); LDL Cholesterol Calculated 87 mg/dL (<100); Total Protein 6.4 g/dL (6.3-8.2); Triglycerides 114 mg/dL (35-150)
[2023-07-23 10:13] LABS: Creatinine Urine Random 89.3 mg/dL
[2023-07-23 10:17] LABS: Microalbumi Creatinin Ratio Ur 60.4 ug/mg CR (<30); Microalbumin Urine Random 5.4 mg/dL (0-1.6)
[2023-07-23 16:50] LABS: Hemoglobin A1C% w Est Avg Glu 5.3 % (4.0-6.0)
[2023-07-23 16:54] LABS: BUN Creatinine Ratio 22.9 (6-22); Blood Urea Nitrogen 36 mg/dL (9-20); Calcium 9.5 mg/dL (8.4-10.2); Carbon Dioxide 27 mmol/L (22-32); Chloride 107 mmol/L (98-107); Estimated Glomerular Filt Rate 47 mL/min (>60); Glucose 105 mg/dL (80-110); HEMOLYSIS < 15 (0-50); Potassium 4.4 mmol/L (3.4-5.1); Sodium 140 mmol/L (137-145)
== END ==
LOC: LAB 06:33
PROVIDERS: PCP Registered Nurse Diabetes Educator; Referring Provider Registered Nurse Diabetes Educator; Visit Provider Registered Nurse Diabetes Educator
DX: E78.5 Hyperlipidemia, unspecified (principal); R74.8 Abnormal levels of other serum enzymes; D69.6 Thrombocytopenia, unspecified; R80.9 Proteinuria, unspecified; N18.32 Chronic kidney disease, stage 3b; R73.01 Impaired fasting glucose; I12.9 Hypertensive chronic kidney disease with stage 1 through stage 4 chronic kidney disease, or unspecified chronic kidney disease
CPT/HCPCS: 36415; 80048; 80061; 80076; 82043; 82570; 83036; 85027

== ENCOUNTER → 2023-10-12 06:39 | Outpatient (CLI) | payer MEDICARE, OTHER, SELFPAY ==
--- NOTE | 2023-10-12 06:41 | DI.CT.S_ITS ---
PROCEDURE: CT LUNG LOW DOSE SCREENING INDICATIONS: high risk lung cancer screen TECHNIQUE: Noncontrast 2.0-2.5 mm thick sections acquired from the pulmonary apices to the posterior costophrenic angles. 7 mm thick axial MIP, and 5 mm coronal and sagittal reformats were then acquired. For radiation dose reduction, the following was used: automated exposure control, adjustment of mA and/or kV according to patient size. COMPARISON: CT 10/21/2022. FINDINGS: Image quality: Diagnostic. Lower Neck: No enlarged lymph nodes. Thyroid: Partially calcified right thyroid nodule, previously characterized on ultrasound dated 10/12/2023. Axillae: No enlarged lymph nodes. Chest Wall: Mild gynecomastia. Bones: Remote compression deformity of the T4 vertebral body. No endplate retropulsion. Lungs and Pleura: No pneumothorax or pleural effusions. Moderate centrilobular emphysema. Heart: Heart size is mildly enlarged. No pericardial effusion. Two vessel coronary artery calcification. Thoracic Vessels: The aorta and pulmonary arteries demonstrate normal size. Mediastinum and Khushi: No enlarged lymph nodes. Esophagus: No wall thickening. No hiatal hernia. Upper Abdomen: Fluid attenuating hepatic cyst. IMPRESSION: No suspicious pulmonary nodules. LUNG-RADS 1; continued annual screening, if eligible. Clinically Significant Non-pulmonary Findings: None. Dictated by: Wilmar Ram M.D. on 10/12/2023 at 9:45 Approved by: Wlimar Ram M.D. on 10/12/2023 at 10:01
--- NOTE | 2023-10-12 06:41 | DI.US.S_ITS ---
PROCEDURE: US THYROID INDICATIONS: Nodules TECHNIQUE: Real-time scanning was performed of the thyroid gland, with image documentation. COMPARISON: [facility], US, US THYROID, 11/11/2022, 15:36. FINDINGS: Thyroid: Right lobe measures 5.6 x 2.3 x 2.6 cm. Left lobe measures 5.7 x 2.4 x 1.9 cm. Isthmus is 4 cm thick. Echotexture is heterogeneous. Nodule number: 1 Location: Left Size: 1.9 x 1.8 x 1.2 cm compared to 1.7 x 0.9 x 0.9 cm. Composition: Solid Echogenicity: Hypoechoic Shape: wider than tall. Margins: Irregular Echogenic foci: Punctate Total points: 7 ACR TI-RADS category: 5 Nodule number: 2 Location: Right Size: 1.7 x 1.6 x 2.2 cm compared to 1.6 x 1.4 x 1.7 cm. Composition: Solid Echogenicity: Hypoechoic Shape: wider than tall. Margins: Irregular Echogenic foci: None Total points: 4 ACR TI-RADS category: 4 Nodule number: 3 Location: Right Size: 1.4 x 1.8 x 1.3 cm compared to 1.4 x 1.5 x 1.2 cm. Composition: Solid Echogenicity: Hypoechoic Shape: wider than tall. Margins: Irregular Echogenic foci: Peripheral Total points: 6 ACR TI-RADS category: 5 Nodule number: 4 Location: Right Size: 1.7 x 0.8 x 1.6 cm compared to 1.6 x 0.8 x 1.7 cm. Composition: Predominantly solid Echogenicity: Hypoechoic Shape: wider than tall. Margins: Smooth Echogenic foci: None Total points: 4 ACR TI-RADS category: 4 IMPRESSION: Lesion1 is considered category 4. It is mildly increased in size. FNA is recommended. Lesion 2 is considered category 4. It is relatively unchanged in size. Although recommendation is for FNA, given imaging stability, 1 year follow-up is recommended unless clinically indicated otherwise. Lesion 3 is considered category 5. It is relatively stable in size. Although recommendation is for FNA, given imaging stability, 1 year follow-up is recommended unless clinically indicated otherwise. Lesion 4 is considered category 4. It is relatively stable in size. Although recommendation is for FNA, given imaging stability, 1 year follow-up is recommended unless clinically indicated otherwise. ACR TI-RADS definitions and recommendations: TI-RADS 1 (benign): 0 points. FNA not needed. TI-RADS 2 (not suspicious): 2 points. FNA not needed. TI-RADS 3 (mildly suspicious): 3 points. * FNA if 2.5 cm or larger, follow up if 1.5 cm or larger (at 1, 3, and 5 years). TI-RADS 4 (moderately suspicious): 4-6 points. * FNA if 1.5 cm or larger, follow up if 1 cm or larger (at 1, 2, 3, and 5 years). TI-RADS 5 (highly suspicious): 7 points or more. * FNA if 1 cm or larger, follow up if 0.5 cm or larger (every year for 5 years). Dictated by: Nida Raza M.D. on 10/12/2023 at 14:54 Approved by: Nida Raza M.D. on 10/12/2023 at 15:07
[2023-10-12 09:20] LABS: Alanine Aminotransferase 59 IU/L (<50); Albumin 4.2 g/dL (3.5-5.0); Alkaline Phosphatase 65 U/L (38-126); Aspartate Aminotransferase 44 IU/L (17-59); Bilirubin Total 1.3 mg/dL (0.2-1.3); Bilirubin Unconjugated 0.8 mg/dL (0.0-1.1); Globulin 2.1 g/dL (1.7-4.1); HEMOLYSIS < 15 (0-50); Total Protein 6.3 g/dL (6.3-8.2)
== END ==
PROVIDERS: PCP Registered Nurse Diabetes Educator; Referring Provider Registered Nurse Diabetes Educator; Visit Provider Registered Nurse Diabetes Educator
DX: F17.290 Nicotine dependence, other tobacco product, uncomplicated; E04.2 Nontoxic multinodular goiter; R74.8 Abnormal levels of other serum enzymes; Z12.2 Encounter for screening for malignant neoplasm of respiratory organs
CPT/HCPCS: 36415; 71271; 76536; 80076

== ENCOUNTER 2024-04-04 06:38 | Day surgery (SDC) | payer MEDICARE, OTHER, SELFPAY ==
[2024-03-30 10:55] VITALS: BMI 24.7
[2024-04-04] MEDS: LACTATED RINGERS 1,000 ML 42 ML IV (07:11)
[2024-04-04 07:23] VITALS: BP 154/73; PULSE 70; RESP 18; TEMP 36.4; O2SAT 97; BMI 24.2
[2024-04-04] MEDS: ACETAMINOPHEN 325 MG TABLET 975 MG PO (07:29)
[2024-04-04 07:47] LABS: BUN Creatinine Ratio 15.9 (6-22); Blood Urea Nitrogen 21 mg/dL (9-20); Calcium 9.4 mg/dL (8.4-10.2); Carbon Dioxide 24 mmol/L (22-32); Chloride 105 mmol/L (98-107); Estimated Glomerular Filt Rate 58 mL/min (>60); Glucose 116 mg/dL (80-110); HEMOLYSIS 22 (0-50); Potassium 3.9 mmol/L (3.4-5.1); Sodium 136 mmol/L (137-145)
[2024-04-04] MEDS: BUPIVACAINE 0.5% W/ EPI (PF) 30 ML VIAL INJ (08:14)
[2024-04-04] MEDS: BUPIVACAINE LIPOSOME 266 MG/20 ML VIAL INJ (08:17)
[2024-04-04 08:35] VITALS: BP 140/64; PULSE 79; RESP 18; TEMP 36.6; O2SAT 97
[2024-04-04 08:39] VITALS: BP 135/68; PULSE 95; RESP 14; O2SAT 96
--- NOTE | 2024-04-04 08:40 | P.OP_ITS ---
Operative Date/Time/Diagnoses Date of procedure: 04/04/24 Time of procedure: 08:40 Pre-op diagnosis: Anal fistula Post-op diagnosis: same Procedure & Clinicians Procedure: Examination under anesthesia and fistulotomy Same procedure as scheduled: Yes Surgeon: Darrell Cole Anesthesia Type: General Operative Notes Procedure in detail: The patient is a 68-year-old man who presented with perianal fistula draining to the left anterior quadrant. He was consented for examination under anesthesia and possible fistula. The patient was intubated and placed in the prone huma-knife position. The perineum was prepped and draped in the usual fashion and a time-out was per formed. Examination of the perianal tissue demonstrated a small opening in the left anterior quadrant. There was induration anterior to this opening and wind pressure was applied a small amount of clear fluid could be expressed through the external opening. A cord could be palpated running straight from the external opening to the anterior dentate line. A small cruciate incision was created to open up the external opening enough to insert a medium metal probe which led directly to the internal opening just above the anterior dentate line. Palpation revealed a small amount of anal sphincter muscle above the probe. More local was injected and the fistulotomy was created with a scalpel and cautery. 20 mL of Exparel were injected into and around the wound. We then packed the wound with Gelfoam gauze. The patient was awakened and brought to recovery room. Findings: Simple anterior [id number] EBL: 5 mL Specimen: None Post-operative Condition: stable Disposition: PACU
[2024-04-04 08:44] VITALS: BP 144/73; PULSE 65; RESP 18; O2SAT 96
[2024-04-04 08:53] VITALS: BP 133/68; PULSE 62; RESP 18; TEMP 36.3; O2SAT 95
[2024-04-04 09:24] VITALS: BP 131/70; PULSE 64; RESP 18; O2SAT 98
--- NOTE | 2024-04-04 09:43 | SUR.OPER ---
Prone on padded OR bed, head in foam head support, gel chest rolls, gel pad under knees, pillow under lower legs, toes free of pressure, arms secured on padded arm boards at <90 degrees abduction. Safety belt at thigh.
== END 2024-04-04 09:25 | disposition home or self-care (01) ==
PROVIDERS: Nurse Anesthetist, Certified Registered; PCP Registered Nurse Diabetes Educator; Referring Provider Surgery; Visit Provider Surgery
PROC: (CPT 46270; principal; 2024-04-04 07:45)
DX: K60.30 Anal fistula, unspecified (principal)
CPT/HCPCS: 46270; 36415; 80048; C9290; J0330; J1100; J2405; J2704; J3010

== ENCOUNTER 2024-05-11 06:42 | Day surgery (SDC) | payer MEDICARE, OTHER, SELFPAY ==
--- NOTE | 2024-05-11 | PATH_ITS ---
[facility] Accession Number: [id number] No. of containers..02 Tissue . 01 Material submitted: . PART A: colon - DISTAL SIGMOID POLYP PART B: rectum - RECTAL POLYP . 01 Diagnosis: A. DISTAL SIGMOID COLON, POLYPECTOMY: Hyperplastic polyp. - B. RECTUM, POLYPECTOMY: Hyperplastic polyp. [facility] 05/15/2024 1618 Local . 01 Electronically signed: . Jimmy Carson MD, Pathologist NPI- [id number] . 01 Gross description: . Part A: DISTAL SIGMOID POLYP: Received in formalin are 2 fragment(s) of burks, soft tissue measuring 0.4 x 0.2 x 0.2 cm to 0.5 x 0.3 x 0.3 cm submitted entirely in 1 cassette(s) Part B: RECTAL POLYP: Received in formalin is 1 fragment(s) of burks, soft tissue measuring 0.3 x 0.2 x 0.2 cm submitted entirely in 1 cassette(s) /JEFF 05/12/2024 2332 Local . 01 Pathologist provided ICD-10: Z12.11 . 01 CPT . 963733, [id number] Specimen Comment: A courtesy copy of this report has been sent to [phone] Performed at: [address] [address], [place], [place] [id number] MD Markus Patel MD Phone: [phone]
[2024-05-11 07:07] VITALS: BP 134/76; PULSE 72; RESP 16; TEMP 36.4; O2SAT 98
--- NOTE | 2024-05-11 07:41 | PM.HP.1 ---
History of Present Illness History of Present Illness Date Patient Seen: 05/11/24 Time Patient Seen: 07:41 Chief complaint: [facility] [place] Narrative: Mike Walsh is a 68-year-old man here for a screening colonoscopy. He did have a sigmoid colon resection many years ago by Dr. Cedeno. He had a fistulotomy last month. [facility] Medical History (Updated 05/11/24 @ 07:42 by Darrell Cole MD) Current every day nicotine vapor product user Aortic stenosis (11/2022) History of basal cell carcinoma (BCC) CKD (chronic kidney disease) stage 3, GFR 30-59 ml/min Measles Chicken pox Diverticular disease (~2011) Skin cancer (~1997) Current smoker Dyslipidemia Hypertension (~2009) Surgical History Anesthesia Status post colon resection (~2014) History of appendectomy (~1972) Family History Father No problems noted. Mother Cancer Brother History of heart disease Hyperlipidemia Hypertension Social History household members: spouse Smoking Status: Current every day smoker alcohol intake: current Meds Home Medications and Allergies Home Medications Medication Instructions Recorded Confirmed Type amlodipine 10 mg tablet 10 mg PO DAILY #90 tabs 07/26/23 05/11/24 Rx aspirin 81 mg tablet,delayed 81 mg PO DAILY #90 tabs 07/26/23 05/11/24 Rx release (Stan Low Dose Aspirin) atorvastatin 80 mg tablet 80 mg PO BEDTIME #90 tabs 07/26/23 05/11/24 Rx hydrochlorothiazide 25 mg tablet 25 mg PO DAILY #90 tabs 07/26/23 04/04/24 Rx lisinopril 40 mg tablet 40 mg PO DAILY #90 tabs 07/26/23 05/11/24 Rx hydrocodone 5 mg-acetaminophen 325 1 tab PO Q8H PRN pain #10 tabs 04/04/24 Rx mg tablet Allergies Allergy/AdvReac Type Severity Reaction Status Date / Time No Known Drug Allergies Allergy Verified 05/11/24 07:15 Exam Vital Signs (past 8 hours): - 05/11/24 07:07 Temperature 97.6 F Pulse Rate 72 Respiratory Rate 16 Blood Pressure 134/76 Pulse Oximetry 98 Oxygen Delivery Method Room Air Oxygen Delivery Method Room Air Const General: healthy appearing Resp Effort & Inspection: normal respiratory effort Assessment & Plan Assessment and plan (1) Colon cancer screening: Status: Acute Plan We reviewed the risks and benefits of colonoscopy and he would like to proceed. Time-Based Coding :: [TOTAL MINUTES] spent with patient and on the chart (including review of chart, obtaining history, exam, reviewing outside data, placing orders, documenting exam and treatment plan, and counseling patient) on [DATE].
--- NOTE | 2024-05-11 08:08 | PM.OP.COLON ---
Operative Date/Time/Diagnoses Date of procedure: 05/11/24 Time of procedure: 08:08 Pre-op diagnosis: Colon cancer screening Post-op diagnosis: same Procedure & Clinicians Study performed: Colonoscopy Same procedure as scheduled: Yes Surgeon: Darrell Cole Procedure Notes Procedure in detail: Surgeon: Darrell Cole MD Anesthesia: Manuela Garcia CRNA Procedure: The patient was brought to the endoscopy suite, placed in left lateral decubitus position. The patient was connected to monitoring devices. A time-out was performed. Sedation was administered. Once the patient was adequately sedated, a digital rectal exam was performed. The wound from the recent fistulotomy was not completely healed yet. The scope was then inserted and advanced to the cecum where the appendiceal orifice was identified and photographed. The scope was then slowly withdrawn over greater than 6 minutes. The mucosa was thoroughly inspected. The anastomosis in the distal sigmoid colon was visible. There was a 7 mm polyp just distal to the anastomosis which was removed with a cold snare and sent as distal sigmoid colon polyp. There was a 5 mm polyp in the mid rectum removed with a cold snare sent as rectal polyp. The scope was retroflexed in the rectum. No other abnormalities were seen. The scope was straightened and removed. The patient was awakened and brought to recovery. Scope withdrawal time: 7 minutes Sedation time: 14 minutes EBL: 30 mL Findings: 7 mm distal sigmoid colon polyp and 5 mm rectal polyp Post-procedure Disposition: PACU
[2024-05-11 08:09] VITALS: BP 106/60; PULSE 72; RESP 16; TEMP 36.5; O2SAT 98
[2024-05-11 08:13] VITALS: BP 102/77; PULSE 73; RESP 16; TEMP 36.2; O2SAT 99
[2024-05-11 08:18] VITALS: BP 102/72; PULSE 70; RESP 16; TEMP 36.8; O2SAT 98
== END 2024-05-11 08:36 | disposition home or self-care (01) ==
PROVIDERS: PCP Registered Nurse Diabetes Educator; Referring Provider Surgery; Visit Provider Surgery
PROC: 0DJD8ZZ Inspection of Lower Intestinal Tract, Via Natural or Artificial Opening Endoscopic (ICD-10-PCS; CPT 45378; principal; 2024-05-11 07:45)
DX: Z12.11 Encounter for screening for malignant neoplasm of colon (principal); K63.5 Polyp of colon; K62.1 Rectal polyp
CPT/HCPCS: 45385; J2704

== ENCOUNTER → 2024-07-22 07:35 | Outpatient (CLI) | payer MEDICARE, OTHER, SELFPAY ==
[2024-07-22 08:54] LABS: Hematocrit 41.8 % (41-53); Hemoglobin 14.6 g/dL (13.5-17.5); Mean Corpuscular HGB Conc 34.9 % (30-36); Mean Corpuscular Hemoglobin 32.3 PG (26-34); Mean Corpuscular Volume 92.3 fL (80-100); Platelet Count 175 X10^3/uL (150-400); Red Blood Cell Count 4.53 X10^6/uL (4.5-5.9); Red Cell Distribution Width 13.4 % (11.6-14.8); White Blood Cell Count 5.9 X10^3/uL (4.5-11.0)
[2024-07-22 09:15] LABS: Alanine Aminotransferase 70 IU/L (<50); Albumin 4.3 g/dL (3.5-5.0); Alkaline Phosphatase 69 U/L (38-126); Aspartate Aminotransferase 54 IU/L (17-59); BUN Creatinine Ratio 22.1 (6-22); Bilirubin Total 1.1 mg/dL (0.2-1.3); Blood Urea Nitrogen 32 mg/dL (9-20); Calcium 9.1 mg/dL (8.4-10.2); Carbon Dioxide 30 mmol/L (22-32); Chloride 103 mmol/L (98-107); Cholesterol 155 mg/dL (140-199); Estimated Glomerular Filt Rate 52 mL/min (>60); Globulin 2.1 g/dL (1.7-4.1); Glucose 100 mg/dL (80-110); HDL Cholesterol 53 mg/dL (40-60); HEMOLYSIS < 15 (0-50); LDL Cholesterol Calculated 88 mg/dL (<100); Potassium 4.2 mmol/L (3.4-5.1); Sodium 138 mmol/L (137-145); Total Protein 6.4 g/dL (6.3-8.2); Triglycerides 70 mg/dL (35-150)
[2024-07-22 09:36] LABS: Creatinine Urine Random 90.69 mg/dL
[2024-07-22 09:40] LABS: Microalbumin Urine Random 5.7 mg/dL (0-1.6)
== END ==
PROVIDERS: PCP Registered Nurse Diabetes Educator; Referring Provider Registered Nurse Diabetes Educator; Visit Provider Registered Nurse Diabetes Educator
DX: E78.5 Hyperlipidemia, unspecified (principal); R74.8 Abnormal levels of other serum enzymes; N18.30 Chronic kidney disease, stage 3 unspecified; I12.9 Hypertensive chronic kidney disease with stage 1 through stage 4 chronic kidney disease, or unspecified chronic kidney disease
CPT/HCPCS: 36415; 80053; 80061; 82043; 82570; 85027

== ENCOUNTER → 2024-07-26 17:12 | Outpatient (CLI) | payer MEDICARE, OTHER, SELFPAY ==
--- NOTE | 2024-07-26 17:13 | DI.RAD.S_ITS ---
PROCEDURE: XR CERVICAL SPINE 4V OR 5V COMPARISON: None. INDICATIONS: eval R shoulder and neck pain FINDINGS: Cervical spine curvature and alignment: There is 3 millimeters of C4 anterior subluxation due to degenerative facet disease. Bones: There are no osseous abnormalities. Disc spaces: Moderate C5-6 and C6-7 degenerative disc disease noted. There is mild degenerate facet disease C3-4 through C7-T1. Intervertebral foramen: Moderate right C3-4 , bilateral C5-6 and C6-7 IV foraminal narrowing noted due to degenerative spurs. Soft tissues: No soft tissue swelling, calcification or mass. IMPRESSION: Degeneration. Dictated by: Dylan Brumfield M.D. on 07/27/2024 at 11:56 Approved by: Dylan Brumfield M.D. on 07/27/2024 at 11:57
--- NOTE | 2024-07-26 17:13 | DI.RAD.S_ITS ---
PROCEDURE: XR SHOULDER RT MIN 2V INDICATIONS: eval R shoulder and neck pain TECHNIQUE: 3 views of the shoulder were acquired. COMPARISON: None. FINDINGS: Bones: Small bone island is seen in the anterior glenoid. No significant osseous abnormality Acromioclavicular and glenohumeral joints: Normal in width and alignment without arthritic change Soft tissues: No soft tissue swelling, calcification or mass. IMPRESSION: Normal shoulder Dictated by: Dylan Brumfield M.D. on 07/27/2024 at 11:57 Approved by: Dylan Brumfield M.D. on 07/27/2024 at 11:58
== END ==
PROVIDERS: PCP Registered Nurse Diabetes Educator; Referring Provider Registered Nurse Diabetes Educator; Visit Provider Registered Nurse Diabetes Educator
DX: M47.812 Spondylosis without myelopathy or radiculopathy, cervical region (principal); M50.322 Other cervical disc degeneration at C5-C6 level; M25.511 Pain in right shoulder; G89.29 Other chronic pain
CPT/HCPCS: 72050; 73030

== ENCOUNTER 2024-08-01 10:04 | Emergency (ER) | payer MEDICARE, OTHER, SELFPAY ==
[2024-08-01 10:15] VITALS: BP 156/70; PULSE 67; RESP 16; TEMP 36.4; O2SAT 98; BMI 23.3
--- NOTE | 2024-08-01 11:20 | ED.WOUNDLAC ---
HPI - Wound/Laceration General Chief Complaint: Wound/Laceration Stated Complaint: swelling/redness on forehead/r eye Time Seen by Provider: 08/01/24 10:23 Source: patient Mode of arrival: Ambulatory History of Present Illness HPI narrative: 69-year-old gentleman with a history of hypertension, hyperlipidemia who comes in with a rash on the right side of his forehead and minor bit of irritation to the nasal bridge on the right side. No complaints of vision changes, has not had much pain but he is concerned that the wounds are not healing. No headaches, recent fevers chills or viral type symptoms. No chest pain, palpitations, dyspnea Related Data Previous Rx's Medication Instructions Recorded amlodipine 10 mg tablet 10 mg PO DAILY #90 tabs 07/30/24 aspirin 81 mg tablet,delayed 81 mg PO DAILY #90 tabs 07/30/24 release (Tsan Low Dose Aspirin) atorvastatin 80 mg tablet 80 mg PO BEDTIME #90 tabs 07/30/24 hydrochlorothiazide 25 mg tablet 25 mg PO DAILY #90 tabs 07/30/24 lisinopril 40 mg tablet 40 mg PO DAILY #90 tabs 07/30/24 Allergies Allergy/AdvReac Type Severity Reaction Status Date / Time No Known Drug Allergies Allergy Verified 07/26/24 16:06 Review of Systems Review of Systems Narrative: Pertinent positive and negative findings as per HPI Patient History Medical History (Updated 08/01/24 @ 11:30 by Fabby Campos MD) Impaired fasting blood sugar Current every day nicotine vapor product user Aortic stenosis (11/2022) History of basal cell carcinoma (BCC) CKD (chronic kidney disease) stage 3, GFR 30-59 ml/min Measles Chicken pox Diverticular disease (~2011) Skin cancer (~1997) Current smoker Dyslipidemia Hypertension (~2009) Surgical History Anesthesia Status post colon resection (~2014) History of appendectomy (~1972) Family History Father No problems noted. Mother Cancer Brother History of heart disease Hyperlipidemia Hypertension Social History household members: spouse Smoking Status: Current every day smoker alcohol intake: current Smoking Status: Current every day smoker alcohol intake frequency: 0-2 drinks per day Exam Initial Vital Signs Initial Vital Signs: Vital Signs Temperature 97.6 F 08/01/24 10:15 Pulse Rate 67 08/01/24 10:15 Respiratory Rate 16 08/01/24 10:15 Blood Pressure 156/70 H 08/01/24 10:15 Pulse Oximetry 98 08/01/24 10:15 Oxygen Delivery Method Room Air 08/01/24 10:15 General: Alert appropriate in no acute distress HEENT: Healing vesicles right side of the frontal portion of his forehead and medial aspect of the bridge of the nose. No eye involvement, minimal surrounding erythema No cervical adenopathy Respiratory: Able to speak in full sentences, no obvious respiratory distress Skin: No obvious rashes, warm and dry Neurologic: Grossly intact no obvious asymmetries or abnormalities Psych: appropriate insight and affect, cooperative Course Vital Signs Vital signs: Vital Signs - 8 hr 08/01/24 10:15 Temperature 97.6 F Pulse Rate 67 Respiratory Rate 16 Blood Pressure 156/70 H Pulse Oximetry 98 Oxygen Delivery Method Room Air MDM - Wound/Laceration MDM Narrative Medical decision making narrative: 69-year-old gentleman with 10 days of a rash on his forehead that he initially had presumed was a bug bite, he has been keeping antibiotic ointment on it and it has not improved. On physical exam he clearly has almost completely resolved V1 distribution right-sided zoster without any ophthalmologic involvement. There was no sign of abscess. There is some minor erythema around the area without overt cellulitis. I did recommend topical antibiotics to avoid any secondary cellulitis. We reviewed signs and symptoms of zoster, anticipated course of recovery and reasons to return including any eye complaints. There was no indication for additional workup or inpatient stay. He is discharged Discharge Plan Departure Patient Disposition: Home Clinical Impression: Shingles Qualifiers: Herpes zoster complications: without complications Qualified Code(s): B02.9 - Zoster without complications Instructions: DI for Shingles Activity Restrictions/Additional Instructions: Thank you for coming in today You have shingles and you are almost completely done with the entire course. With a small wounds that are still and were forehead, please keep some topical antibiotic ointment and a dressing over them to prevent any bacterial infection. There was no sign of any eye involvement which is quite good If you find that you are getting worse or develop any new symptoms, please feel free to return to the emergency department for further evaluation. Prescriptions: No Action amlodipine 10 mg tablet 10 mg PO DAILY Qty: 90 3RF aspirin [Stan Low Dose Aspirin] 81 mg tablet,delayed release (DR/EC) 81 mg PO DAILY Qty: 90 3RF atorvastatin 80 mg tablet 80 mg PO BEDTIME Qty: 90 3RF hydrochlorothiazide 25 mg tablet 25 mg PO DAILY Qty: 90 3RF lisinopril 40 mg tablet 40 mg PO DAILY Qty: 90 3RF Referrals: Aleks Ponce ARNP [Primary Care Provider] - Stand Alone Forms: Patient Portal/API/Survey
[2024-08-01 11:32] VITALS: BP 155/78; PULSE 66; RESP 19; TEMP 36.9; O2SAT 98
== END 2024-08-01 11:42 | disposition home or self-care (01) ==
PROVIDERS: Emergency Provider Emergency Medicine; PCP Registered Nurse Diabetes Educator
DX: B02.9 Zoster without complications (principal)
CPT/HCPCS: 99281

== ENCOUNTER → 2024-08-09 14:42 | Outpatient (CLI) | payer MEDICARE, OTHER, SELFPAY ==
--- NOTE | 2024-08-09 14:44 | DI.MRI.S_ITS ---
PROCEDURE: MR SHOULDER RT W CON INDICATIONS: eval R shoulder TECHNIQUE: After the administration of 12 mL of dilute intra-articular Gadolinium contrast, oblique coronal T1 and T2 spin echo with fat saturation, oblique sagittal T1 spin echo with and without fat saturation, oblique sagittal T2 fast spin echo with fat saturation, axial T1 spin echo with fat saturation through the shoulder. COMPARISON: None. FINDINGS: Image quality: Excellent. Rotator cuff: In the supraspinatus, there is high-grade, articular sided tear at the anterior footprint, extending to full-thickness tear at the junction supraspinatus and infraspinatus, measuring 1.0 cm on sagittal dimension. Additional low-grade articular sided tear of the infraspinatus at the footprint. The teres minor is unremarkable. The subscapularis is unremarkable. No muscle edema or fatty atrophy. Bones and bursae: Severe degenerative changes of the acromioclavicular joint. Type 1 acromion. No os acromiale. Small amount of contrast extravasation into the subacromial/subdeltoid bursa. Mild subchondral cystic changes at the humeral head, reactive. No acute fracture. No focal chondral defect of the glenohumeral articulation. Capsule and soft tissues: Near circumferential labral tear. Multiple paralabral cyst about the inferior labrum, measuring up to 1.1 cm. The extra-articular biceps tendon is unremarkable. Mild tendinosis of the intra-articular biceps tendon. No intra-articular body. IMPRESSION: 1. Severe degenerative changes of the acromioclavicular joint. 2. Full-thickness tear at the junction of the supraspinatus and infraspinatus. 3. Additional high-grade tear of the supraspinatus and low-grade tear of the infraspinatus. 4. Near circumferential labral tear with multiple paralabral cysts. 5. Mild tendinosis of the intra-articular biceps tendon. Dictated by: Isela Martin M.D. on 08/09/2024 at 16:55 Approved by: Isela Martin M.D. on 08/09/2024 at 17:04
--- NOTE | 2024-08-09 14:44 | DI.MRI.S_ITS ---
PROCEDURE: MR CERVICAL SPINE WO CON INDICATIONS: further eval TECHNIQUE: Noncontrast sagittal T1 spin echo and T2 fast spin echo, sagittal STIR, foraminal oblique sagittal T2 fast spin echo, and axial gradient echo or T2 fast spin echo through the cervical spine. COMPARISON: None. FINDINGS: Image quality: Excellent. Alignment and Curvature: Mild anterolisthesis of C4 on C5 and mild retrolisthesis of C5 on C6. Bone Marrow: Degenerative endplate changes are present. Marrow demonstrates normal overall signal. Partially visualized compression deformity of T4 without edema, consistent with chronic compression fracture. Spinal Cord: Visualized spinal cord has normal size and signal. No cerebellar tonsillar herniation. Paraspinous Soft Tissues: No paravertebral masses. Prevertebral soft tissues are normal in thickness. C2-C3: Facet and uncovertebral arthropathy. No central canal stenosis. Mild right and no left neural foraminal stenosis. C3-C4: Disc desiccation and mild posterior disc osteophyte complex asymmetric to the right. Mild central canal stenosis. Facet and uncovertebral arthropathy. Severe right and no left neural foraminal stenosis. C4-C5: Disc desiccation and mild posterior disc osteophyte complex asymmetric to the right. Facet and uncovertebral arthropathy. Mild central canal stenosis. Severe right and moderate left neural foraminal stenosis. C5-C6: Disc desiccation and moderate height loss. Mild posterior disc osteophyte complex. Facet uncovertebral arthropathy. Mild central canal stenosis. Severe bilateral neural foraminal stenosis. C6-C7: Disc desiccation and moderate disc height loss. Posterior disc osteophyte complex. Moderate central canal stenosis. Facet and uncovertebral arthropathy. Severe bilateral neural foraminal stenosis. C7-T1: Disc desiccation. Facet and uncovertebral arthropathy. No significant central canal stenosis. Likely moderate left and no significant right neural foraminal stenosis.. IMPRESSION: 1. Multilevel degenerative changes of the cervical spine as described above. 2. Moderate central canal stenosis at C6-C7. Mild multilevel central canal stenosis at other levels. 3. Severe neural foraminal stenosis on the right at C3-C4, right at C4-C5 and bilaterally at C5-C6 and C6-C7. Dictated by: Cory Ram M.D. on 08/09/2024 at 17:16 Approved by: Cory Ram M.D. on 08/09/2024 at 17:23
--- NOTE | 2024-08-09 14:44 | DI.RAD.S_ITS ---
PROCEDURE: FL ARTHROGRAM SHOULDER RT INDICATIONS: Chronic shoulder pain COMPARISON: None. TECHNIQUE: The indications, alternatives, benefits, risks, and complications of the procedure were explained to the patient. Written informed consent was obtained and placed in the chart. The shoulder was examined fluoroscopically and a site for needle placement chosen for entry into the glenohumeral joint from an anterior approach. The skin was prepped and draped in a sterile fashion, and 1% lidocaine infiltrated from skin down to joint capsule. A spinal needle was inserted into the glenohumeral joint, and a small amount of iodinated contrast media injected to confirm intra-articular placement of the needle tip. This was followed by approximately 12 mL dilute solution of a gadolinium containing MR contrast agent. The needle was removed and a dressing was applied. The patient was given postprocedural instructions and sent to the MR suite for MR imaging. FINDINGS: A single fluoroscopic spot image demonstrates intra-articular location of injected iodinated contrast. IMPRESSION: Successful fluoroscopically guided administration of dilute Gadolinium solution into the shoulder joint for MR arthrogram. Dictated by: Orestes Arzate M.D. on 08/09/2024 at 16:51 Approved by: Orestes Arzate M.D. on 08/09/2024 at 16:51
[2024-08-09] MEDS: SODIUM CHLORIDE 0.9 % 20 ML VIAL IV (15:42)
[2024-08-09] MEDS: LIDOCAINE 1% 20 ML INJ (15:42)
== END ==
PROVIDERS: PCP Registered Nurse Diabetes Educator; Referring Provider Registered Nurse Diabetes Educator; Visit Provider Registered Nurse Diabetes Educator
DX: M50.30 Other cervical disc degeneration, unspecified cervical region (principal); M25.511 Pain in right shoulder; G89.29 Other chronic pain; M48.02 Spinal stenosis, cervical region; M75.121 Complete rotator cuff tear or rupture of right shoulder, not specified as traumatic; M25.811 Other specified joint disorders, right shoulder
CPT/HCPCS: 23350; 72141; 73040; 73222; A9579; Q9967

== ENCOUNTER → 2024-10-04 06:57 | Outpatient (CLI) | payer MEDICARE, OTHER, SELFPAY ==
--- NOTE | 2024-10-04 06:58 | DI.US.S_ITS ---
PROCEDURE: US THYROID INDICATIONS: 1 Year f/u thyroid lesions for monitoring TECHNIQUE: Real-time scanning was performed of the thyroid gland, with image documentation. COMPARISON: , US, US THYROID, 10/12/2023, 7:38. FINDINGS: Thyroid: Right lobe measures 6.3 x 2.8 x 2.1 cm. Left lobe measures 5.5 x 3.1 x 2.1 cm. Isthmus is 0.4 cm thick. Echotexture is heterogeneous. Nodule number: 1 Location: Left lobe centrally Size: 2.1 x 1.8 x 1.3 cm. Composition: Solid Echogenicity: Isoechoic Shape: Round Margins: Relatively circumscribed Echogenic foci: None Total points: 5 ACR TI-RADS category: 4 Nodule number: 2 Location: Right lobe centrally Size: 2.1 x 1.7 cm. Composition: Solid Echogenicity: Slightly hypoechoic Shape: Rounded Margins: Circumscribed Echogenic foci: No Total points: 4 ACR TI-RADS category: 4 Nodule number: 3 Location: Right lobe centrally Size: 1.5 x 1.5 x 1.3 cm. Composition: Solid Echogenicity: Nearly isoechoic Shape: Rounded Margins: Relatively circumscribed Echogenic foci: No Total points: 4 ACR TI-RADS category: 4 Nodule number: 4 Location: The right lobe inferiorly Size: 1.8 x 1 cm. Composition: Predominantly cystic Echogenicity: Hyperechoic Shape: wider than tall. Margins: Well-defined Echogenic foci: No Total points: 0 ACR TI-RADS category: 1 IMPRESSION: Minimal enlargement of the nodule in the left lobe with stable appearance of the nodules in the right lobe. No new focal lesion seen. ACR TI-RADS definitions and recommendations: TI-RADS 1 (benign): 0 points. FNA not needed. TI-RADS 2 (not suspicious): 2 points. FNA not needed. TI-RADS 3: 3 points. * FNA if 2.5 cm or larger, follow up if 1.5 cm or larger (at 1, 3, and 5 years). TI-RADS 4: 4-6 points. * FNA if 1.5 cm or larger, follow up if 1 cm or larger (at 1, 2, 3, and 5 years). TI-RADS 5: 7 points or more. * FNA if 1 cm or larger, follow up if 0.5 cm or larger (every year for 5 years). Dictated by: Freddy Barcenas M.D. on 10/04/2024 at 17:07 Approved by: Freddy Barcenas M.D. on 10/04/2024 at 17:28
--- NOTE | 2024-10-04 07:43 | DI.CT.S_ITS ---
PROCEDURE: CT LUNG LOW DOSE SCREENING INDICATIONS: eval, high risk lung cancer screen TECHNIQUE: Noncontrast 2.0-2.5 mm thick sections acquired from the pulmonary apices to the posterior costophrenic angles. 7 mm thick axial MIP, and 5 mm coronal and sagittal reformats were then acquired. For radiation dose reduction, the following was used: automated exposure control, adjustment of mA and/or kV according to patient size. COMPARISON: [facility], CT, CT LUNG LOW DOSE SCREENING, 10/12/2023, 6:47. FINDINGS: Image quality: Diagnostic. Lower Neck: No enlarged lymph nodes. Thyroid: Stable appearance of calcified nodule in the right thyroid lobe, therefore most likely benign. Axillae: No enlarged lymph nodes. Chest Wall: Unremarkable. Bones: Unremarkable. Lungs and Pleura: No pneumothorax or pleural effusions. No consolidation or suspicious nodules. Heart: Heart size is normal. No pericardial effusion. Thoracic Vessels: The aorta and pulmonary arteries demonstrate normal size. Mediastinum and Khushi: No enlarged lymph nodes. Esophagus: No wall thickening. No hiatal hernia. Upper Abdomen: Visualized upper abdomen solid organs and bowel loops appear normal. IMPRESSION: No suspicious pulmonary nodules. LUNG-RADS 1; continued annual screening, if eligible. Clinically Significant Non-pulmonary Findings: None. Dictated by: Freddy Barcenas M.D. on 10/04/2024 at 15:38 Approved by: Freddy Barcenas M.D. on 10/04/2024 at 15:50
== END ==
LOC: US 06:58
PROVIDERS: PCP Registered Nurse Diabetes Educator; Referring Provider Registered Nurse Diabetes Educator; Visit Provider Registered Nurse Diabetes Educator
DX: Z87.891 Personal history of nicotine dependence (principal); E04.2 Nontoxic multinodular goiter
CPT/HCPCS: 71271; 76536